=== PATIENT | male | born 1945 | race African-American/Black ===

== ENCOUNTER 2021-02-02 15:40 | Inpatient (IN) | payer OTHER ==
[~2021-02-02] VITALS: Ht 182.9 cm; Wt 61.2 kg
--- NOTE | ~2021-02-02 | EMS ---
[address] [address] EMS Patient Care Report Name: JUDIE VELA Room #: REG Elsy#: [id number] Admission: 02/02/21 Attend Phys: Discharge: Date of : 47 Report #: [id number] THIS REPORT FOR: //name// Report Transmitted: 02/02/2021 16:04 EMS Care Summary [place], [place]/[facility] Incident [id number] @ 02/02/2021 14:51 Incident Location [address] [place], [place] [id number] Patient JUDIE VELA Male, 76 Years 1945 Patient Address [address] [place] [address] Patient History Diabetes,Coronary Artery Bypass Graft (CABG), Patient Allergies No known allergies, Patient Medications Gabapentin, Insulin, Atorvastatin, Chief Complaint WEAKNESS/ HYPOTENSION Disposition Transported No Lights/Alger Dispatch Reason Diabetic Problem Transported To [facility] Narrative DISPATCHED TO A DIABETIC PROBLEM. ARRIVED ON SCENE OF HOME TO BE LED TO MALE PATIENT SEATED IN A CHAIR BY THE BACK SHED. HE SAID THAT HE WAS OVER AT A [employer]ING [employer] AND HAD TO USE THE RESTROOM BUT SOMEONE WAS IN IT SO HE WENT OUTSIDE TO USE THE RESTROOM AND WHILE DOING SO DEFICATED ON HIMSELF AND [address] [address] EMS Patient Care Report Name: JUDIE VELA Room #: REG ER Elsy#: [id number] Admission: 02/02/21 Attend Phys: Discharge: Date of : 47 Report #: [id number] FELL TO THE FLOOR. HE DENIED ANY INJURIES FROM THE FALL BUT SAID THAT HE WAS TOO WEAK TO GET BACK UP. HE SAID THE WEAKNESS HAS BEEN GOING ON FOR ABOUT 2 HOURS AND THAT HE HAS NOT BEEN EATING OR DRINKING WELL THE PAST FEW DAYS BECAUSE HE HAS NOT HAD AN APPETITE. HE SAID HE HAS NOT EATEN ANYTHING TODAY OR HAD HIS INSULIN. PATIENT'S VITALS AND A BLOOD GLUCOSE WERE OBTAINED. HE WAS FOUND TO BE HYPERGLYCEMIC AND HYPOTENSIVE. HE WAS ASSISTED IN STANDING AND SITTING ON THE COT, SECURED WITH STRAPS, AND MOVED TO THE AMBULANCE. PATIENT VITALS WERE REOBTAINED ALONG WITH A 12 LEAD. IV WAS STARTED AND PATIENT WAS ADMINISTERED NORMAL SALINE. PATIENT WAS TRANSPORTED TO THE HOSPITAL WITH VITALS AND INTERVENTIONS MONITORED. UPON ARRIVAL AT THE HOSPITAL PATIENT WAS MOVED INTO ED ROOM 1 ON THE COT AND LIFTED OVER TO THE HOSPITAL BED. PATIENT CARE WAS TURNED OVER TO ED NURSING STAFF. Initial Vitals @15:27P: 90,BP: 131/70,CO: 2,SpO2: 94, @15:17P: 86,CO: 2,SpO2: 96,WI Suspected: false @15:18P: 90,BP: 91/54, @15:23P: 83,BP: 99/63,CO: 1,SpO2: 94, @15:33P: 85,R: 16,BP: 130/75,Pain: 0/10,GCS: 15,CO: 0,SpO2: 96,Revised Trauma: 12, @15:08P: 91,R: 16,BP: 73/52,Pain: 0/10,GCS: 15,Glucose: 318,CO: 3,SpO2: 96,Revised Trauma: 10, Assessments @14:59MENTAL:Person Oriented,Time Oriented,Place Oriented,Event Oriented,SKIN:HEENT:Head/Face: No Abnormalities,Neck/Airway: No Abnormalities,LUNG SOUNDS:General: No Abnormalities,Left Upper: No Abnormalities,Right Upper: No Abnormalities,Left Lower: No Abnormalities,Right Lower: No Abnormalities,ABDOMEN:General: No Abnormalities,Left Upper: No Abnormalities,Right Upper: No Abnormalities,Left Lower: No Abnormalities,Right Lower: No Abnormalities,PELVIS//GI:No Abnormalities,EXTREMITIES:Right Leg: Weakness,Left Leg: Weakness,Capillary Refill: Right Upper: < 2 Sec,Left Arm: No Abnormalities,Right Arm: No Abnormalities,PULSE:Radial: 1+ Thready,NEURO:No Abnormalities,@15:30MENTAL:SKIN:HEENT:LUNG SOUNDS:ABDOMEN:PELVIS//GI:EXTREMITIES:PULSE:Radial: 2+ Normal,NEURO: Impression Hypotension Procedures @14:59ALS AssessmentResponse: UnchangedSucceeded@15:06Saline Lock 250cc (20 ga) Site: Antecubital-RightResponse: UnchangedSucceeded@15:05Saline Lock 0cc (20 ga) Site: Hand-LeftResponse: UnchangedFailed@15:083-Lead ECGResponse: UnchangedSucceeded@15:1712-Lead ECGResponse: UnchangedSucceeded [address] [address] EMS Patient Care Report Name: JUDIE VELA Room #: REG Elsy#: [id number] Admission: 02/02/21 Attend Phys: Discharge: Date of : 47 Report #: [id number] 14:49,Call Received 14:49,Dispatch Notified 14:51,Dispatched 14:52,En Route 14:55,On Scene 14:59,At Patient 14:59,ALS Assessment,Response: UnchangedSucceeded, 15:05,Saline Lock 0cc 20 ga Site: Hand-Left,Response: UnchangedFailed, 15:06,Saline Lock 250cc 20 ga Site: Antecubital-Right,Response: UnchangedSucceeded, 15:08,3-Lead ECG,Response: UnchangedSucceeded, 15:08,BP: 73/52 M,PULSE: 91,RR: 16 R,SPO2: 96 Ox,ETCO2: ,B,PAIN: 0,GCS: 15, 15:17,12-Lead ECG,Response: UnchangedSucceeded, 15:17,BP: / M,PULSE: 86,RR: R,SPO2: 96 Ox,ETCO2: ,BG: ,PAIN: ,GCS: , 15:18,BP: 91/54 M,PULSE: 90,RR: R,SPO2: Ox,ETCO2: ,BG: ,PAIN: ,GCS: , 15:23,BP: 99/63 M,PULSE: 83,RR: R,SPO2: 94 Ox,ETCO2: ,BG: ,PAIN: ,GCS: , 15:23,Depart Scene 15:27,BP: 131/70 M,PULSE: 90,RR: R,SPO2: 94 Ox,ETCO2: ,BG: ,PAIN: ,GCS: , 15:33,BP: 130/75 M,PULSE: 85,RR: 16 R,SPO2: 96 Ox,ETCO2: ,BG: ,PAIN: 0,GCS: 15, 15:35,At Destination 15:48,Call Closed Disclaimer v1.1 Copyright 2020 [employer] This EMS Care Summary contains data elements from the applicable legal record (which may be displayed differently). It is designed to provide pertinent information for the following purposes: continuity of care, clinical quality, and state data reporting. The complete legal record is available to ED staff and administrators of the receiving hospital in [facility]'s Patient Tracker. All data is provided "as is."
[~2021-02-02 15:40] MED LIST: CHILDREN'S ASPI81 M1 PO; COLACE100 MG PO; FERREX 150150 MG PO; GABAPENTIN600 M1 PO; GLUCOPHAGE850 MG PO; HORIZANT600 MG PO; LASIX 40 MG TAB40 M2 PO; LIPITOR10 MG PO; LISINOPRIL20 MG PO; LOPRESSOR25 PO; METFORMIN HCL500 MG PO; NEURONTIN 300300 M1 PO; NOVOLOG100 UNIT/1 SUBQ; PERCOCET 10-321 EACH PO; SIMVASTATIN40 MG PO; ZOCOR20 MG PO
[2021-02-02 15:43] VITALS: BP 131/65
[2021-02-02 16:07] LABS: ABSOLUTE NEUTROPHILS 4.9 thou/uL (1.4-8.2); BASOPHILS 1.4 % (0.0-2.0); EOSINOPHILS 2.9 % (0.0-3.0); HEMATOCRIT 34.2 % (42.0-52.0); HEMOGLOBIN 10.9 gm/dL (14.0-18.0); LYMPHOCYTES 26.6 % (24.0-44.0); MCH 23.7 pg (26.0-34.0); MCHC 31.8 g/dL (28.0-37.0); MCV 74.5 fL (80.0-100.0); MONOCYTES 7.4 % (1.0-8.0); PLATELET COUNT 196 thou/uL (150-400); POLYS 61.7 % (36.0-66.0); RBC 4.59 mil/uL (4.50-6.00); RDW 15.7 % (10.5-14.5); WBC 7.9 thou/uL (4.0-11.0)
[2021-02-02 16:16] LABS: ANION GAP 7 mmol/L (7-16); BUN 27 mg/dL (7-18); CALCIUM 8.7 mg/dL (8.5-10.1); CHLORIDE 100 mmol/L (98-107); CO2 26 mmol/L (21-32); CREATININE 2.1 mg/dL (0.7-1.3); GLUCOSE 359 mg/dL (74-106); POTASSIUM 4.5 mmol/L (3.5-5.1); SODIUM 133 mmol/L (136-145)
--- NOTE | 2021-02-02 16:21 | NUR ---
VERBAL CONSENT OBTAINED FROM PT. SISTER KRISHNA KING [phone] UPDATED ON POC AND PT'S CURRENT HEALTH STATUS IN THE ER. REQUESTING TO BE CALLED WHEN PLAN OF DISCHARGE IS IN PLACE (STATES SHE WILL NOT BE PICKING PT UP DUE TO HER HEALTH CONDITION).
[2021-02-02 16:26] LABS: ALBUMIN 2.9 g/dL (3.4-5.0); SGOT 9 U/L (15-37); TOTAL BILIRUBIN 0.5 mg/dL (0.2-1.0); TOTAL PROTEIN 6.6 g/dL (6.4-8.2); TROPONIN-I <0.06 ng/mL (<0.06)
[2021-02-02 16:29] LABS: SGPT < 6 U/L (30-65)
[2021-02-02 18:12] LABS: URINE BILIRUBIN NEGATIVE (Negative); URINE BLOOD TRACE (Negative); URINE CLARITY CLEAR; URINE COLOR YELLOW; URINE GLUCOSE-RANDOM* 3+ (Negative); URINE KETONES NEGATIVE (Negative); URINE LEUKOCYTES-REFLEX NEGATIVE (Negative); URINE NITRITE-REFLEX NEGATIVE (Negative); URINE PROTEIN (DIPSTICK) NEGATIVE (Negative); URINE SPECIFIC GRAVITY 1.015 (1.005-1.035); URINE UROBILINOGEN 0.2 E.U./dl (0.2-1.0)
[2021-02-02 18:20] VITALS: BP 134/68
[2021-02-02 18:50] VITALS: BP 143/55
[2021-02-02] MEDS ORDERED: LOSARTAN POTASS50 MG PO (19:09)
[2021-02-02] MEDS ORDERED: POTASSIUM20 PO (19:10)
[2021-02-02 19:19] LABS: % SATURATION 37 % (20-39); IRON 76 ug/dL (65-175); TIBC 208 ug/dL (250-450)
[2021-02-02 19:33] LABS: ALBUMIN 2.9 g/dL (3.4-5.0); TOTAL PROTEIN 6.7 g/dL (6.4-8.2)
[2021-02-02 19:39] VITALS: BP 147/88
--- NOTE | 2021-02-02 22:07 | NUR ---
PT ADMITTED TO THE UNIT AT 1925. PT IS A/O X4 AND IS UP WITH SBA TO THE BR. DENIES C/O PAIN OR DISCOMFORT. VSS AFEBRILE. URINAL IS AT THE BEDSIDE. NO BM SINCE ARRIVAL. PT ACCIDENTALLY PULLED OUT RIGHT AC IV. REMOVED WITH CATHETER INTACT. ADMISSION IS COMPLETED. PT HAS BEEN EDUCATED ON USE OF BED CONTROLS AND CALL LIGHT. FALL PRECAUTIONS IMPLEMENTED, CALL LIGHT IS WITHIN REACH. WILL CONTINUE TO MONITOR.
[2021-02-03] VITALS (7 sets, daily range): BP systolic 109–157; BP diastolic 60–78
[2021-02-03 02:05] LABS: GLYCOHEMOGLOBIN (HGB A1C) 13.3 % (4.8-5.6)
[2021-02-03 02:13] LABS: CALCIUM 8.4 mg/dL (8.5-10.1); CREATININE 1.7 mg/dL (0.7-1.3); MAGNESIUM 1.8 mg/dL (1.8-2.4); POTASSIUM 4.2 mmol/L (3.5-5.1)
[2021-02-03 02:16] LABS: HEMATOCRIT 35.9 % (42.0-52.0); HEMOGLOBIN 11.2 gm/dL (14.0-18.0); MCH 23.3 pg (26.0-34.0); MCHC 31.3 g/dL (28.0-37.0); MCV 74.4 fL (80.0-100.0); RBC 4.82 mil/uL (4.50-6.00); RDW 15.8 % (10.5-14.5); WBC 10.6 thou/uL (4.0-11.0)
--- NOTE | 2021-02-03 07:50 | EKG ---
[address] [place] [address] ELECTROCARDIOGRAM REPORT Name: JUDIE VELA Room #: 450-P ADM IN M.R.#: [id number] Admission: 02/02/21 Attend Phys: Sivakumar Cam MD Discharge: Date of : 47 Report #: [id number] [facility] ED Test Date: 2021-02-02 Test Time: 15:54:53 Pat Name: JUDIE VELA Department: Room: 450 Gender: M Policy Issue Clerk: cw : 1945 Requested By: Carmelo Diaz Order Number: [id number] MD: Obed Kay Measurements Intervals [place] Rate: 86 P: 33 RI: 181 QRS: 14 QRSD: 125 T: 28 QT: 400 QTc: 479 Interpretive Statements Sinus rhythm Right bundle branch block Abnormal inferior Q waves Compared to ECG 04/11/2014 10:20:55 Ventricular premature complex(es) no longer present Electronically Signed On 02-03-2021 7:50:29 CDT by Obed Kay [email or web address] <ELECTRONICALLY SIGNED> By: Obed Kay MD, [facility] 02/03/21 0750 1554 1554 Obed Kay MD, [facility] /EPI
--- NOTE | 2021-02-03 09:54 | 2DMMODE ---
[facility] [place] [address] 2 D/M-MODE ECHOCARDIOGRAM Name: JUDIE VELA Room #: 450-P ADM IN M.R.#: [id number] Admission: 02/02/21 Attend Phys: Sivakumar Cam MD Discharge: Date of : 47 Report #: [id number] THIS REPORT FOR: cc: Danial Fox MD, Michael D. MD Park, Jin S. MD ~ APPROVED REPORT Study performed: 02/03/2021 09:08:00 EXAM: Comprehensive 2D, Doppler, and color-flow Echocardiogram Patient Location: Bedside Room #: 450 Status: routine BSA: 1.80 HR: 80 bpm BP: 141/67 mmHg Rhythm: Sinus/arrhythmia Other Information Study Quality: Adequate Indications Syncope Hx: WV, CABG, DM, HTN. 2D Dimensions RVDd: 39.00 mm IVSd: 12.00 (7-11mm) LVOT Diam: 23.00 (18-24mm) LVDd: 51.00 mm PWd: 12.00 (7-11mm) Ascending Ao: 35.00 (22-36mm) LVDs: 36.00 (25-40mm) Left Atrium: 38.00 (27-40mm) Aortic Root: 36.00 mm Volumes Left Atrial Volume (Systole) Single Plane 4CH: 45.68 mL Single Plane 2CH: 45.53 mL LA ESV Index: 29.00 mL/m2 Aortic Valve AoV Peak Aj.: 0.94 m/s AO Peak Gr.: 3.53 mmHg LVOT Max P.65 mmHg LVOT Max V: 0.81 m/s [facility] [address] [place] [address] 2 D/M-MODE ECHOCARDIOGRAM Name: JUDIE VELA Room #: 450-[facility] IN [facility]#: [id number] Admission: 02/02/21 Attend Phys: Sivakumar Cam, Discharge: Date of : 47 Report #: [id number] DORIS Vmax: 3.44 cm2 Mitral Valve E/A Ratio: 0.6 MV Decel. Time: 177.17 ms MV E Max Aj.: 0.52 m/s MV A Aj.: 0.88 m/s MV PHT: 51.38 ms IVRT: 93.43 ms Pulmonary Valve PV Peak Aj.: 0.83 m/s PV Peak Gr.: 2.78 mmHg Tricuspid Valve TR Peak Aj.: 2.64 m/s RAP Estimate: 5.00 mmHg TR Peak Gr.: 28.00 mmHg PA Pressure: 33.00 mmHg Left Ventricle The left ventricle is normal size. There is normal LV segmental wall motion. Mild concentric left ventricular hypertrophy. Left ventricular systolic function is normal. LVEF is 60%. Mild diastolic dysfunction is present (impaired relaxation pattern). Right Ventricle The right ventricle is normal size. The right ventricular systolic function is normal. Atria The left atrium size is normal. The right atrium size is normal. Aortic Valve The aortic valve is normal in structure. No aortic regurgitation is present. There is no aortic valvular stenosis. Mitral Valve The mitral valve is normal in structure. There is no mitral valve regurgitation noted. No evidence of mitral valve stenosis. Tricuspid Valve The tricuspid valve is normal in structure. Mild tricuspid regurgitation. Estimated PAP is 30-35mmHg. Pulmonic Valve The pulmonary valve is normal in structure. There is no pulmonic [address] [address] 2 D/M-MODE ECHOCARDIOGRAM Name: JUDIE VELA Room #: 450-P [facility] IN ..#: [id number] Admission: 02/02/21 Attend Phys: Sivakumar Cam, Discharge: Date of : 47 Report #: [id number] valvular regurgitation. Great Vessels The aortic root is normal in size. The ascending aorta is normal in size. IVC is normal in size and collapses >50% with inspiration. Pericardium There is no pericardial effusion. <Conclusion> The left ventricle is normal size. Mild concentric left ventricular hypertrophy. Left ventricular systolic function is normal. Mild diastolic dysfunction is present (impaired relaxation pattern). The right ventricle is normal size. The left atrium size is normal. The aortic valve is normal in structure. There is no mitral valve regurgitation noted. Mild tricuspid regurgitation. Estimated PAP is 30-35mmHg. <ELECTRONICALLY SIGNED> By: Edenilson Dunn MD 02/03/2154 3 3 Edenilson Dunn MD /INF
--- NOTE | 2021-02-03 11:58 | NUR ---
Tirggered for low BMI 18.3. Pt very sleepy at time of visit, conversation was short. He denies any weight loss recently and reports UBW 135#, which is current weight. A1c noted 13.3, uncontrolled DM. PMH: CKD, HTN, hx OK, CABG. Pt agreaable to try Glucerna BID for low BMI and BS management. Low nutrition risk with intervention initiated.
[2021-02-03] MEDS ORDERED: LEVEMIR100 UNIT/1 SUBQ (14:05)
--- NOTE | 2021-02-03 15:19 | NUR ---
PT ADMITTED RELATED TO SYCOPE/HYPOTENSION. CM REVIEWED CHART AND SPOKE WITH CARE TEAM. CM MET WITH PT AT BEDSIDE THIS DAY. PT APPEARED TO BE A&O X4. CM ROLE INTRODUCED. PT INDICATED HE RESIDES IN A HOUSE WITH HIS SISTER WITH 1 STEP TO ENTER AND A STAIR GLIDE INSIDE. 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 PT'S PCP IS DR. SANJAY GARCIA. PT INDICATED NO PREVIOUS HH SERVICES JUST VISITS MONTHLY FROM [facility]. PT INDICATED HE PLANS TO RETURN HOME ONCE MEDICALLY STABLE. CM FOLLOWING REGARDING DC PLANNING.
--- NOTE | 2021-02-03 20:00 | NUR ---
PT IS A&O*4 WITH FORGETFULL. ECHO DONE IN THE MORNING. ORTHROSTATIC BP OBTAINED IN THE MORNING. PT USE URINAL IN BED. PT HAD LOW APPETITE IN MEALS, GLUCERNA SHAKE ORDERED AND GIVEN TO PT. NS @100 ML/HR THROUGH LFET FOREARM IV. INDEPENDENTLY AND NEED GET UP BY 1 ASSITANCE. INSULIN HAS BEEN GIVEN PER ORDERED. REPORT ONE TIME HEADACHE AND TYLENOL GIVEN PRN PAIN MEDICATION. PT REPORT PAIN RELIEFED IN PAIN REASSESSMENT.
[2021-02-04 05:40] LABS: HEMATOCRIT 38.7 % (42.0-52.0); HEMOGLOBIN 12.1 gm/dL (14.0-18.0); MCH 23.5 pg (26.0-34.0); MCHC 31.3 g/dL (28.0-37.0); MCV 75.1 fL (80.0-100.0); RBC 5.15 mil/uL (4.50-6.00); RDW 15.8 % (10.5-14.5); WBC 8.2 thou/uL (4.0-11.0)
[2021-02-04 06:06] LABS: CALCIUM 8.6 mg/dL (8.5-10.1); CREATININE 1.4 mg/dL (0.7-1.3); MAGNESIUM 1.7 mg/dL (1.8-2.4); POTASSIUM 3.7 mmol/L (3.5-5.1)
--- NOTE | 2021-02-04 08:02 | NUR ---
NO SIGNIFICANT EVENTS DURING THE NIGHT. TYLENOL GIVEN FOR C/O HEADACHE. PT SLEPT MOST OF THE NIGHT. RESPIRATIONS EVEN AND UNLABORED. PT VOIDS INDEPENDENTLY VIA URINAL. GOOD URINE OUTPUT. HE DENIES ANY DIZZINESS. NO SYNCOPAL EPISODES DURING THE NIGHT. FALL PRECAUTIONS IN PLACE. PROGRESSING SLOWLY TOWARD POC GOALS. REPORT GIVEN TO DAY SHIFT RN.
[2021-02-04 08:36] VITALS: BP 161/69
--- NOTE | 2021-02-04 11:40 | NUR ---
PATIENT HAD MRI DONE THIS AM. NEW ORDER FOR STRESS TEST TO BE DONE TODAY. KEPT NPO PRIOR TO TEST. PATIENT UPSET ABOUT NOT BEING ABLE TO EAT BUT EXPLAINED REASON FOR NPO STATUS. POTEINTIAL PLAN TO DISCHARGE HOME THIS EVENING AFTER RESULTS STRESS TEST ARE NOTED. CURRENTLY OFF THE UNIT FOR TESTING.
[2021-02-04 11:46] VITALS: BP 164/69
[2021-02-04] MEDS ORDERED: HYDRALAZINE 2525 M1 PO (12:09)
--- NOTE | 2021-02-04 15:05 | NUR ---
PT HAD STRESS TEST THIS DAY. CARE TEAM INDICATED THAT DEPENDING ON RESILTS OF STRESS PT MAY BE MEDICALLY STABLE TO DC HOME THIS DAY. CARE TEAM ARE RECOMMENDING HH UPON DC. CM SPOKE WITH PT'S SISTER IS RECEPTIVE TO ANY SUPPORTS THAT CAN BE PROVIDED. CM MET WITH PT AT BEDSIDE THIS DAY HE INDICATED HE WAS AGREEABLE TO HH PT, OT, AND NURSING. HE INDICATED NO PREFERANCE IN PROVIDERS. [facility] TO MEET WITH PT THIS AFTERNOON. PT WILL NEED TRANSPORT HOME THIS DAY AND A SHIRT. CM TO FOLLOW UP WITH PT AND ARRANGED.
[2021-02-04 15:48] VITALS: BP 164/69
[2021-02-04 15:49] VITALS: BP 164/69
[2021-02-04 17:32] VITALS: BP 188/105
--- NOTE | 2021-02-04 18:34 | NUR ---
UPDATED PATIENTS SISTER ON PATIENT STATUS AND TEST RESULTS. REVIEWED DISCHARGE INSTRUCTIONS. PATIENT AWARE OF FOLLOW UP APPOINTMENTS AND MEDICATION CHANGES. DENIED ANY CONCERNS OR QUESTIONS. IV DISCONTINUED. TELEMONTIOR OFF. PROVIDED CAB VOUCHER FOR RIDE HOME.
--- NOTE | 2021-02-09 19:42 | HC ---
[facility] [place] [address] CONSULTATION Name: JUDIE VELA Room #: 450-[facility] IN .R.#: [id number] Admission: 02/02/21 Attend Phys: Sivakumar Cam MD Discharge: 02/04/21 Date of : 47 Report #: [id number] THIS REPORT FOR: cc: Danial Fox MD, Michael D. MD Khosla, Parveen K. MD ~ DATE OF SERVICE: 02/03/2021 HISTORY OF PRESENT ILLNESS: This is a 76-year-old male patient who was admitted with an episode of syncope with urinary incontinence. The patient gives a history that he was having a low blood pressure at that time for some reason when he came to Emergency Room. He does not remember anything about the episode. No firsthand witness is there, so I cannot tell whether he had tonic-clonic movements. REVIEW OF SYSTEMS: He gives a history that he is having a balance issue. He is not sure whether they are episodic or continuous, but it is going on for some time. He has diabetes, but I do not think it is well controlled. He had an [place] in 2013. He has a history of renal failure and his creatinine has been chronically high. He is a chronic smoker. He has some history of back pain. He had a bypass surgery in the past. He has been diagnosed with neuropathy, which I suspect is because of diabetes. This was his 14-point review of system. He was not complaining of any new eye, ENT, cardiac, respiratory, musculoskeletal, constitutional, dermatological, hematological, psychiatric, throat, allergic symptom associated with present symptomatology. PAST MEDICAL HISTORY: Positive for cardiac disease. FAMILY HISTORY: Unremarkable. SOCIAL HISTORY: He smokes. PHYSICAL EXAMINATION: He is alert and responsive. His speech looks intact. His cranial nerve examinations appear unremarkable. He moves all 4 extremities, but he did very poorly with this position sense. His reflexes are absent. I did not make him walk, but on bedside exam, it does not appear to be ataxic, I could not look at his fundus. There is no meningeal sign. There is no carotid bruit. There is no thyroid mass. He is a very well-developed individual who does not have any dysmorphic features of eyes, ears and face. His hearing and vision is adequate. His pulses are difficult to feel. He has no edema, cyanosis or jaundice. His last blood pressure is 130/60. LABORATORY DATA: His platelet count is 205. GFR is 48. IMPRESSION: An episode of syncope with urinary and fecal incontinence. The episode still does not look seizure. It looks more like a cardiac pathology. [facility] [address] [place] [address] CONSULTATION Name: JUDIE VELA Room #: 450-P [facility] IN M.R.#: [id number] Admission: 02/02/21 Attend Phys: Sivakumar Cam MD Discharge: 02/04/21 Date of : 47 Report #: [id number] There are already working up this patient somewhat concerning this patient is that he is having difficulty with ambulation. He said he had ataxia and his balance is not good. This is going on for some time, but he does not know the exact date. Because of that, I will suggest doing an MRI of the brain to make sure there is no etiology, but otherwise I think the emphasis should be to continue to check for any cardiac and systemic causes for his problem. He does need a workup for his neuropathy, but that should be done as an outpatient. Some of the workup was already done like B12 and thyroid and they are normal. Rest of the workup, he should arrange this as an outpatient. He is not a very compliant patient. I do not know whether he will do it or not, but I recommended that to him. Thank you very much for this referral. <ELECTRONICALLY SIGNED> By: Demetrio Rosado MD 02/09/21 1942 1810 0041 Demetrio Rosado MD /nt
== END 2021-02-04 17:41 | disposition home health service (06) | DRG 312 ==
LOC: ER 15:40 → EROBS 17:29 → 4W 17:29
PROVIDERS: Emergency Medicine; ADMIT Internal Medicine; ATTEND Internal Medicine
DX: I95.1 Orthostatic hypotension (principal); N17.0 Acute kidney failure with tubular necrosis; E87.2 Acidosis; Z68.1 Body mass index [BMI] 19.9 or less, adult; Z20.822 Contact with and (suspected) exposure to COVID-19; E11.40 Type 2 diabetes mellitus with diabetic neuropathy, unspecified; G89.29 Other chronic pain; M54.9 Dorsalgia, unspecified; E78.5 Hyperlipidemia, unspecified; J44.9 Chronic obstructive pulmonary disease, unspecified; R32 Unspecified urinary incontinence; I12.9 Hypertensive chronic kidney disease with stage 1 through stage 4 chronic kidney disease, or unspecified chronic kidney disease; F17.210 Nicotine dependence, cigarettes, uncomplicated; E11.65 Type 2 diabetes mellitus with hyperglycemia; N18.30 Chronic kidney disease, stage 3 unspecified; E11.22 Type 2 diabetes mellitus with diabetic chronic kidney disease; D50.9 Iron deficiency anemia, unspecified; R53.81 Other malaise; R63.4 Abnormal weight loss; Z79.82 Long term (current) use of aspirin; I25.2 Old myocardial infarction; Z95.1 Presence of aortocoronary bypass graft; Z79.899 Other long term (current) drug therapy
CPT/HCPCS: 10045

== ENCOUNTER → 2021-02-19 | Outpatient (CLI) | payer OTHER ==
[~2021-02-19] MED LIST changes: +HYDRALAZINE 2525 M1 PO; +LEVEMIR100 UNIT/1 SUBQ; +LOSARTAN POTASS50 MG PO; +POTASSIUM20 PO
== END ==
LOC: SJCVC 11:14
PROVIDERS: ATTEND Internal Medicine Cardiovascular Disease
DX: R94.31 Abnormal electrocardiogram [ECG] [EKG] (principal); I45.10 Unspecified right bundle-branch block; I25.10 Atherosclerotic heart disease of native coronary artery without angina pectoris; R55 Syncope and collapse; I95.9 Hypotension, unspecified; E78.00 Pure hypercholesterolemia, unspecified; E11.22 Type 2 diabetes mellitus with diabetic chronic kidney disease; N18.9 Chronic kidney disease, unspecified; E78.5 Hyperlipidemia, unspecified; I25.2 Old myocardial infarction; F17.200 Nicotine dependence, unspecified, uncomplicated; Z95.1 Presence of aortocoronary bypass graft; Z79.4 Long term (current) use of insulin; Z79.899 Other long term (current) drug therapy